=== PATIENT | male | born 1960 | race Caucasian/White ===

== ENCOUNTER 2017-10-12 15:00 | Outpatient (CLI) | payer OTHER ==
[~2017-10-12] VITALS: Ht 185.4 cm; Wt 149.7 kg
[~2017-10-12 15:00] MED LIST: ACHYD1T PO; CEPH-38 PO; CEPH500C PO; CYCL10TA9 PO; FEXO-104 PO; HYDR-3876 PO; IBUP800T26 PO; LISI10TA2 PO; MULT-963 PO; NITR-33 PO; OMEG1CAP51 PO
[2017-10-12] MEDS ORDERED: MULT-35 PO (15:09)
[2017-10-12] MEDS ORDERED: LISI-556 PO (15:09)
[2017-10-12] MEDS ORDERED: IBUP-1780 PO (15:09)
[2017-10-12] MEDS ORDERED: OMEG-109 PO (15:09)
[2017-10-12] MEDS ORDERED: CYCL10TA9 PO (15:09)
[2017-10-12] MEDS ORDERED: FEXO-46 PO (15:09)
== END 2017-10-12 15:14 ==
LOC: PREOP 15:00
PROVIDERS: ATTEND Surgery
DX: Z01.818 Encounter for other preprocedural examination (principal); Z12.11 Encounter for screening for malignant neoplasm of colon

== ENCOUNTER 2017-10-17 06:41 | Day surgery (SDC) | payer OTHER ==
[~2017-10-17] VITALS: Ht 185.4 cm; Wt 149.7 kg
[~2017-10-17 06:41] MED LIST changes: -IOHEXOL 350 MG/ML 100 ML (OMNIPAQUE 350) VIAL IV ONE; -NS 250 ML (IVPB) BAG IV ONE
--- OUTSIDE RECORDS SUMMARY | 2017-10-17 06:46 | XMS REPORT | Continuity of Care Document ---
Author Author [facility] Organization [facility] Address Unknown Phone Unavailable Allergies Active Description Code Type Severity Reaction Onset Reported/Identified Relationship to Patient Clinical Status Yes No Known Drug Allergies [id number] Drug Allergy Unknown N/A 11/22/2013 Medications There is no data. Problems Date Dx Coded Attending Type Code Diagnosis Diagnosed By 11/27/2013 MARCELLO DAVIS, SHANELL Resendiz Ot 603.9 11/09/2014 Ot 553.20 11/09/2014 Ot 571.8 11/09/2014 Ot 592.0 11/09/2014 Ot 753.10 11/12/2014 Ot 553.20 11/12/2014 Ot 571.8 11/12/2014 Ot 592.0 11/12/2014 Ot 753.10 11/20/2014 MARCELLO DAVIS, SHNAELL Resendiz Ot 401.9 11/20/2014 MARCELLO DAVIS, SHANELL Resendiz Ot 592.0 11/22/2014 Ot 553.20 11/22/2014 Ot 571.8 11/22/2014 Ot 592.0 11/22/2014 Ot 753.10 12/02/2014 MARCELLO DAVIS, SHANELL Resendiz Ot 603.9 12/02/2014 MARCELLO DAVIS, SHANELL Resendiz Ot V72.81 12/02/2014 MARCELLO DAVIS, SHANELL Resendiz Ot V72.84 12/02/2014 MARCELLO DAVIS, SHANELL Reesndiz Ot V74.8 12/02/2014 Ot 553.20 12/02/2014 Ot 571.8 12/02/2014 Ot 592.0 12/02/2014 Ot 753.10 12/02/2014 MARCELLO DAVIS, SHANELL Resendiz Ot 592.9 12/02/2014 MARCELLO DAVIS, SHANELL Resendiz Ot 592.0 12/02/2014 MARCELLO DAVIS, SHANELL Resendiz Ot V72.84 12/02/2014 MARCELLO DAVIS, SHANELL Resendiz Ot V74.8 12/03/2014 MARCELLO DAVIS, SHANELL Resendiz Ot 592.9 12/20/2014 MARCELLO DAVIS, SHANELL Resendiz Ot 592.0 12/20/2014 MARCELLO DAVIS, SHANELL Resendiz Ot V45.89 02/26/2015 VONNIE DAVIS, SUSAN Fletcher Ot 553.20 03/06/2015 VONNIE DAVIS, SUSAN M Ot 553.20 03/06/2015 VONNIE DAVIS, SUSAN M Ot 603.9 03/06/2015 VONNIE DAVIS, SUSAN Fletcher Ot V72.63 03/06/2015 VONNIE DAVIS, SUSAN Chance Ot V74.8 Procedures There is no data. Results There is no data. Encounters ACCT No. Visit Date/Time Discharge Status Pt. Type Provider Facility Loc./Unit Complaint [id number] 02/26/2015 06:00:00 02/26/2015 13:55:00 DIS Outpatient SUSAN SHANKAR MD [facility] [id number] 02/17/2015 14:23:00 02/17/2015 23:59:59 CLS Outpatient SUSAN SHANKAR MD [facility] PREOP [id number] 12/02/2014 13:04:00 12/02/2014 23:59:59 CLS Outpatient SHANELL ARMENDARIZ MD [facility] RAD [id number] 11/20/2014 06:00:00 11/20/2014 11:48:00 DIS Outpatient SHANELL ARMENDARIZ MD [facility] [id number] 11/13/2014 15:35:00 11/13/2014 23:59:59 CLS Outpatient SHANELL ARMENDARIZ MD [facility] PREOP [id number] 11/13/2014 13:12:00 11/13/2014 23:59:59 CLS Outpatient SHANELL ARMENDARIZ MD [facility] RAD [id number] 11/27/2013 06:08:00 11/27/2013 11:10:00 DIS Outpatient SHANELL ARMENDARIZ MD [facility] [id number] 11/22/2013 10:28:00 11/22/2013 23:59:59 CLS Outpatient MARCELLO DAVIS, SHANELL Resendiz [facility] RAD [id number] 10/17/2017 08:30:00 PEN Preadclark SHANKAR MD, SUSAN Fletcher [facility] RAD ABD PAIN/RECURRENT VENTRAL HERNIA [id number] 11/08/2014 12:08:00 Document Registration
[2017-10-17] MEDS ORDERED: NS IV 500 ML 500 ML ONE (08:42)
[2017-10-17] MEDS ORDERED: NS IV 500 ML 500 ML IV PRN (08:50)
[2017-10-17 09:12] VITALS: BP 105/71
--- NOTE | 2017-10-17 09:53 | Conscious Sedation/ASA ---
Conscious Sedation Pre-Proced Time Reviewed: 09:53 ASA Class: 3 Airway Mallampati Classification: ([place] appropriate class) I. II. III, IV Lungs Heart ASA score ASA 1: a normal healthy patient ASA 2: a patient with a mild systemic disease (mid diabetes, controlled hypertension, obesity ASA 3: a patient with a severe systemic disease that limits activity (angina , COPD, prior Myocardial infarction) ASA 4: a patient with an incapacitating disease that is a constant threat to life (CHF, renal failure) ASA 5: a moribund patient not expected to survive 24 hrs. (ruptured aneurysm) ASA 6: a declared brain patient whose organs are being harvested. For emergent operations, add the letter E after the classification Grade 2 Sedation Plan: Discussed options with patient/fam Note The patient is an appropriate candidate to undergo the planned procedure, sedation, and anesthesia. The patient immediately re-assessed prior to indication. SUSAN SHANKAR MD Oct 17, 2017 09:53
[2017-10-17] MEDS ORDERED: MIDAZOLAM 2 MG/2 ML (VERSED) VIAL ONE ×4 (10:13)
[2017-10-17] MEDS ORDERED: fentaNYL INJECTION 100 MCG/2 ML AMP ONE (10:13)
[2017-10-17] MEDS: MIDAZOLAM 2 MG/2 ML (VERSED) VIAL IVP PRN ×4 (10:25→10:40)
[2017-10-17] MEDS: fentaNYL INJECTION 100 MCG/2 ML AMP IVP PRN ×2 (10:26→10:30)
--- NOTE | 2017-10-17 10:55 | Endo Procedure Record ---
Endo Procedure Report Date of Procedure Last Colonoscopy: No Oct 17, 2017 Surgeon (s) SUSAN SHANKAR MD Post Procedure/Op Diagnosis Sigmoid diverticulosis 2 mm polyps 2, adjacent to each other along the distal sigmoid colon Procedure Performed Colonoscopy to cecum Hot biopsy polypectomy 2 Description of Procedure Anesthesia Type: Conscious Sedation Specimen(s) collected/removed sigmoid polyps Description of the Procedure Indication for the procedure: This gentleman came in for screening colonoscopy. Informed consent was obtained after reviewing the procedure in detail. Description of the procedure: He was placed in left lateral rectus position and his vital signs were monitored. Conscious sedation was achieved using Versed and fentanyl. Digital rectal examination was unremarkable. The colonoscope was then introduced into the rectum and advanced all the way up to the cecum Positive bowel preparation was excellent. The scope was withdrawn slowly and the mucosa examined in a systematic fashion. Findings: 1. Very few sigmoid diverticulae 2. 2 polyps, 2 mm each, adjacent to each other, along the distal sigmoid colon ; these were excised and sent as one specimen He tolerated the procedure well and was taken back to the nursing area in a stable condition. Impression: Screening colonoscopy. Sigmoid polyps excised. Recommend repeating in 5 years. SUSAN SHANKAR MD Oct 17, 2017 10:55 am
--- NOTE | 2017-10-17 10:56 | Discharge Inst-Simple/Standard ---
Discharge Inst-Standard Discharge Medications New, Converted or Re-Newed RX: Other Patient Instructions/Follow Up Plan of Care/Instructions/FU: Repeat colonoscopy in 5 years. My office staff will contact him and schedule surgery for recurrent ventral hernia Activity as Tolerated: Yes Discharge Diet: No Restrictions SUSAN SHANKAR MD Oct 17, 2017 10:56 am
[2017-10-17 11:43] VITALS: BP 90/61
[2017-10-17 11:46] VITALS: BP 90/61
== END 2017-10-17 11:49 | disposition home or self-care (01) ==
LOC: ENDO 06:41
PROVIDERS: ATTEND Surgery
DX: Z12.11 Encounter for screening for malignant neoplasm of colon (principal); K63.5 Polyp of colon; K57.30 Diverticulosis of large intestine without perforation or abscess without bleeding

== ENCOUNTER → 2017-10-17 | Outpatient (CLI) | payer OTHER ==
[~2017-10-17] MED LIST changes: +FEXO-46 PO; +IBUP-1780 PO; +IOHEXOL 350 MG/ML 100 ML (OMNIPAQUE 350) VIAL IV ONE; +LISI-556 PO; +MULT-35 PO; +NS 250 ML (IVPB) BAG IV ONE; +OMEG-109 PO
[2017-10-17 07:15] LABS: BUN/CREATININE RATIO 13; CREATININE SERUM 0.91 MG/DL (0.60-1.30); GFR ESTIMATED > 60
--- NOTE | 2017-10-17 09:34 | Diagnostic Imaging Report ---
PROCEDURE: CT abdomen and pelvis with contrast. TECHNIQUE: Multiple contiguous axial images were obtained through the abdomen and pelvis after administration of intravenous contrast. INDICATION: Recurrent ventral hernia and abdominal pain Comparison is made to the study of 11/08/2014. Mild low-density throughout the liver suggests fatty infiltration. Small focal lucencies near the dome of the right lobe of the liver could represent cysts or areas of focal fat deposition. No pancreatic, gallbladder or splenic lesion is detected. Adrenal glands are stable and unremarkable in appearance. There are multiple dominant cysts involving both kidneys which measure up to 6.2 cm in diameter. In addition, tiny nonobstructing calculi are suspected centrally in the right kidney. 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 In addition, there is an approximately 0.6 cm hyperdense focus within the region of proximal left upper pole ureter, however, there is no evidence of associated hydronephrosis or ureteric dilatation. There is no free fluid in the abdomen or pelvis. No localized inflammation is identified within the abdomen or pelvis, however, there is a persistent ventral herniation of omentum which appears be just above the level of the umbilicus with an approximately 5.5 cm defect in the anterior abdominal wall musculature. This is similar to the previous study and there is no evidence of bowel herniation. Partially opacified urinary bladder is unremarkable in appearance. 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 There is no evidence of associated hydronephrosis or hydroureter. Small nonobstructing calculi also seen centrally in the right kidney. Otherwise, there has been no significant change in midline ventral herniation of omentum just above the umbilicus. No bowel obstruction is detected. Dictated by: Dictated on workstation # [id number]
== END ==
LOC: RAD 06:37
PROVIDERS: ATTEND Surgery
DX: K43.2 Incisional hernia without obstruction or gangrene (principal); Q64.8 Other specified congenital malformations of urinary system; N28.89 Other specified disorders of kidney and ureter; N20.0 Calculus of kidney
CPT/HCPCS: 36415; 74177; 82565; 84520

== ENCOUNTER 2017-10-21 05:39 | Outpatient (CLI) | payer OTHER ==
[~2017-10-21] VITALS: Ht 185.4 cm; Wt 149.7 kg
== END 2017-10-21 15:55 ==
LOC: PREOP 05:39
PROVIDERS: ATTEND Surgery
DX: Z01.818 Encounter for other preprocedural examination (principal); K43.2 Incisional hernia without obstruction or gangrene

== ENCOUNTER 2017-10-26 05:54 | Day surgery (SDC) | payer OTHER ==
[~2017-10-26] VITALS: Ht 185.4 cm; Wt 149.7 kg
--- OUTSIDE RECORDS SUMMARY | 2017-10-26 05:57 | XMS REPORT | Continuity of Care Document ---
Author Author [facility] Organization [facility] Address Unknown Phone Unavailable Allergies Active Description Code Type Severity Reaction Onset Reported/Identified Relationship to Patient Clinical Status Yes No Known Drug Allergies [id number] Drug Allergy Unknown N/A 10/12/2017 Medications There is no data. Problems Date Dx Coded Attending Type Code Diagnosis Diagnosed By 11/27/2013 MARCELLO DAVIS, SHANELL Resendiz Ot 603.9 HYDROCELE NOS 11/09/2014 Ot 553.20 11/09/2014 Ot 571.8 11/09/2014 Ot 592.0 11/09/2014 Ot 753.10 11/12/2014 Ot 553.20 11/12/2014 Ot 571.8 11/12/2014 Ot 592.0 11/12/2014 Ot 753.10 11/20/2014 MARCELLO DAVIS, SHANELL Resendiz Ot 401.9 HYPERTENSION NOS 11/20/2014 MARCELLO DAVIS, SHANELL Resendiz Ot 592.0 CALCULUS OF KIDNEY 11/22/2014 Ot 553.20 11/22/2014 Ot 571.8 11/22/2014 Ot 592.0 11/22/2014 Ot 753.10 12/02/2014 MARCELLO DAVIS, SHANELL Resendiz Ot 603.9 12/02/2014 MARCELLO DAVIS, SHANELL Resendiz Ot V72.81 12/02/2014 MARCELLO DAVIS, SHANELL Resendiz Ot V72.84 12/02/2014 MARCELLO DAVIS, SHANELL Resendiz Ot V74.8 12/02/2014 Ot 553.20 12/02/2014 Ot [...] 02/26/2015 VONNIE DAVIS, SUSAN Fletcher Ot 553.20 VENTRAL HERNIA NOS 03/06/2015 VONNIE DAVIS, SUSAN Fletcher Ot 553.20 03/06/2015 VONNIE DAVIS, SUSAN Fletcher Ot 603.9 03/06/2015 VONNIE DAVIS, SUSAN Fletcher Ot V72.63 03/06/2015 VONNIE DAVIS, SUSAN Fletcher Ot V74.8 10/12/2017 VONNIE DAVIS, SUSAN Fletcher Ot Z01.818 ENCOUNTER FOR OTHER PREPROCEDURAL EXAMIN 10/12/2017 VONNIE DAVIS, SUSAN Fletcher Ot Z12.11 ENCOUNTER FOR SCREENING FOR MALIGNANT NE 10/14/2017 MARCELLO DAVIS, SHANELL Resendiz Ot 603.9 HYDROCELE NOS 10/14/2017 MARCELLO DAVIS, SHANELL Resendiz Ot V72.81 [id number] CARDIOVASCULAR 10/14/2017 SHANELL ARMENDARIZ MD Ot V72.84 EXAM PRE-OPERATIVE NOS 10/14/2017 SHANELL ARMENDARIZ MD Ot V74.8 SCREEN-BACTERIAL DIS NEC 10/14/2017 Ot 553.20 VENTRAL HERNIA NOS 10/14/2017 Ot 571.8 CHRONIC LIVER DIS NEC 10/14/2017 Ot 592.0 CALCULUS OF KIDNEY 10/14/2017 Ot 753.10 CYSTIC KIDNEY DISEASE, UNSPECIFIED 10/14/2017 SHANELL ARMENDARIZ MD Ot 592.9 URINARY CALCULUS NOS 10/14/2017 SHANELL ARMENDARIZ MD Ot 592.0 CALCULUS OF KIDNEY 10/14/2017 SHANELL ARMENDARIZ MD Ot V72.84 EXAM PRE-OPERATIVE NOS 10/14/2017 SHANELL ARMENDARIZ MD Ot V74.8 SCREEN-BACTERIAL DIS NEC 10/14/2017 SHANELL ARMENDARIZ MD Ot 592.0 CALCULUS OF KIDNEY 10/14/2017 SHANELL ARMENDARIZ MD Ot V45.89 POSTSURGICAL STATES NEC 10/14/2017 VONNIE DAVIS, SUSAN Fletcher Ot 553.20 VENTRAL HERNIA NOS 10/14/2017 VONNIE DAVIS, SUSAN Fletcher Ot 603.9 HYDROCELE NOS 10/14/2017 SUSAN SHANKAR MD Ot V72.63 PRE-PROCEDURAL LABORATORY EXAMINATION 10/14/2017 SUSAN SHANKAR MD Ot V74.8 SCREEN-BACTERIAL DIS NEC 10/17/2017 SUSAN SHANKAR MD Ot K57.30 DVRTCLOS OF LG INT W/O PERFORATION OR AB 10/17/2017 SUSAN SHANKAR MD Ot K63.5 POLYP OF COLON 10/17/2017 SUSAN SHANKAR MD Ot Z12.11 ENCOUNTER FOR SCREENING FOR MALIGNANT NE 10/17/2017 SUSAN SHANKAR MD Ot K43.2 INCISIONAL HERNIA WITHOUT OBSTRUCTION OR 10/17/2017 SUSAN SHANKAR MD Ot N20.0 CALCULUS OF KIDNEY 10/17/2017 SUSAN SHANKAR MD Ot N28.89 OTHER SPECIFIED DISORDERS OF KIDNEY AND 10/17/2017 SUSAN SHANKAR MD Ot 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 10/19/2017 SUSAN SHANKAR MD Ot K57.30 DVRTCLOS OF LG INT W/O PERFORATION OR AB 10/19/2017 SUSAN SHANKAR MD Ot K63.5 POLYP OF COLON 10/19/2017 SUSAN SHANKAR MD Ot Z12.11 ENCOUNTER FOR SCREENING FOR MALIGNANT NE 10/20/2017 SUSAN SHANKAR MD Ot K57.30 DVRTCLOS OF LG INT W/O PERFORATION OR AB 10/20/2017 SUSAN SHANKAR MD Ot K63.5 POLYP OF COLON 10/20/2017 SUSAN SHANKAR MD Ot Z12.11 ENCOUNTER FOR SCREENING FOR MALIGNANT NE 10/25/2017 SUSAN SHANKAR MD Ot K43.2 INCISIONAL HERNIA WITHOUT OBSTRUCTION OR 10/25/2017 SUSAN SHANKAR MD Ot Z01.818 ENCOUNTER FOR OTHER PREPROCEDURAL EXAMIN Procedures There is no data. Results Test Result Range [id number] - 10/17/17 06:55 Serum or plasma urea nitrogen measurement (mass/volume) 12 mg/dL 7-18 Serum or plasma creatinine measurement (mass/volume) 0.91 mg/dL 0.60-1.30 Serum or plasma urea nitrogen/creatinine mass ratio 13 NRG Serum or plasma creatinine measurement with calculation of estimated glomerular filtration rate > NRG Encounters ACCT No. Visit Date/Time Discharge Status Pt. Type Provider Facility Loc./Unit Complaint [id number] 10/21/2017 05:39:00 10/21/2017 15:55:00 DIS Outpatient SUSAN SHANKAR MD [facility] PREOP RECURRENT VENTRAL HERNIA [id number] 10/17/2017 06:37:00 10/17/2017 23:59:59 CLS Outpatient SUSAN SHANKAR MD [facility] RAD ABD PAIN/RECURRENT VENTRAL HERNIA [id number] 10/17/2017 06:41:00 10/17/2017 11:49:00 DIS Outpatient SUSAN SHANKAR MD [facility] ENDO SCREENING [id number] 10/12/2017 15:00:00 10/12/2017 15:14:00 DIS Outpatient SUSAN SHANKAR MD [facility] PREOP COLONOSCOPY [id number] 02/26/2015 06:00:00 02/26/2015 13:55:00 DIS Outpatient SUSAN SHANKAR MD [facility] SDC VENTRAL HERNIA [id number] 02/17/2015 14:23:00 02/17/2015 23:59:59 CLS Outpatient SUSAN SHANKAR MD [facility] PREOP VENTRAL HERNIA [id number] 12/02/2014 13:04:00 12/02/2014 23:59:59 CLS Outpatient SHANELL ARMENDARIZ MD [facility] RAD RENAL STONES [id number] 11/20/2014 06:00:00 11/20/2014 11:48:00 DIS Outpatient SHANELL ARMENDARIZ MD [facility] SDC BILATERAL RENAL STONES [id number] 11/13/2014 15:35:00 11/13/2014 23:59:59 CLS Outpatient SHANELL ARMENDARIZ MD [facility] PREOP BILATERAL RENAL STONES [id number] 11/13/2014 13:12:00 11/13/2014 23:59:59 CLS Outpatient SHANELL ARMENDARIZ MD [facility] RAD STONES [id number] 11/27/2013 06:08:00 11/27/2013 11:10:00 DIS Outpatient SHANELL ARMENDARIZ MD [facility] LEFT CYSTOCELE [id number] 11/22/2013 10:28:00 11/22/2013 23:59:59 CLS Outpatient SHANELL ARMENDARIZ MD [facility] RAD LT HYDROCELE [id number] 10/26/2017 08:00:00 PEN Preadmit VONNIE DAVIS, SUSAN Fletcher [facility] RECURRENT VENTRAL HERNIA [id number] 11/08/2014 12:08:00 Document Registration
[2017-10-26 06:10] VITALS: BP 113/78
[2017-10-26] MEDS ORDERED: SEVOFLURANE (ULTANE) 15 ML INHAL SOLN ONE (06:41)
[2017-10-26] MEDS ORDERED: proPOfol 200 MG/20 ML (DIPRIVAN) VIAL IV ONE (06:41)
[2017-10-26] MEDS ORDERED: MIDAZOLAM 2 MG/2 ML (VERSED) VIAL ONE (06:41)
[2017-10-26] MEDS ORDERED: ROCURONIUM 10 MG/ML 5 ML SYRINGE IV ONE (06:41)
[2017-10-26] MEDS ORDERED: ONDANSETRON 4 MG/2 ML (SDV) Z0FRAN ONE (06:41)
[2017-10-26] MEDS ORDERED: DEXAMETHASONE 10 MG/ML (DECADRON) 1 ML VIAL ONE (06:41)
[2017-10-26] MEDS: LACTATED RINGERS 1,000 ML IV PRN ×2 (06:45→08:08)
[2017-10-26] MEDS ORDERED: PREGABALIN 75 MG (LYRICA) CAP ONE (07:22)
[2017-10-26] MEDS ORDERED: CELECOXIB 100 MG (CeleBREX) CAP PO ONE ×2 (07:22→07:30)
[2017-10-26] MEDS ORDERED: oxyCODONE ER 10 MG (OxyCONTIN CR) TAB PO ONE ×2 (07:22→07:30)
[2017-10-26] MEDS ORDERED: BUP/EPI 0.5% 1:200,000 (SENSORCAINE) 30 ML VIAL ONE (07:22)
[2017-10-26] MEDS ORDERED: PREGABALIN 75 MG (LYRICA) CAP PO ONE (07:30)
[2017-10-26] MEDS ORDERED: ceFAZolin 2 GM IV Premixed 50 ML IV ONE (07:30)
[2017-10-26] MEDS ORDERED: ACETAMINOPHEN 500 MG TAB (TYLENOL) PO ONE (07:30)
--- NOTE | 2017-10-26 07:36 | Progress Note-Pre Operative ---
Pre-Operative Progress Note H&P Reviewed The H&P was reviewed, patient examined and no changes noted. Date Seen by Provider: Oct 17, 2017 Time Seen by Provider: 11:20 Date H&P Reviewed: Oct 26, 2017 Time H&P Reviewed: 07:36 Pre-Operative Diagnosis: Recurrent ventral hernia SUSAN SHANKAR MD Oct 26, 2017 7:36 am
[2017-10-26] MEDS: KETOROLAC 30 MG/ML VIAL IV SCH ×3 (07:45→20:47)
[2017-10-26] MEDS ORDERED: morphine INJ 10 MG/ML 1ML (SYR OR VIAL) IV PRN (07:45)
[2017-10-26] MEDS ORDERED: LIDOCAINE PF 0.5% 50 ML (XYLOCAINE) VIAL ONE (08:53)
[2017-10-26] MEDS ORDERED: GLYCOPYRROLATE 0.2 MG/ML (ROBINUL) 2 ML VIAL ONE (09:51)
[2017-10-26] MEDS ORDERED: NEOSTIGMINE 1 MG/ML 5 ML SYRINGE ONE (09:51)
--- NOTE | 2017-10-26 10:01 | Operative Report ---
Operative Report Date of Procedure/Surgery Oct 26, 2017 Surgeon (s) SUSAN SHANKAR MD Insurance Agency Owner (s): n/a Post-Operative Diagnosis Same Procedure Performed Robotic assisted repair with mesh Description of Procedure Anesthesia Type: General Estimated blood loss (mL): Minimal Specimen(s) collected/removed None Description of the Procedure Indication for the procedure: This gentleman presented with a recurrent ventral hernia, superior lateral to the umbilicus. He had undergone minimally invasive repair with primary closure of the defect and reinforcement of the mesh back to have years ago. CT scan showed omentum being incarcerated within the defect. He was offered further repair using robotic assistance and reinforcement with a new mesh. Informed consent was obtained after reviewing the operative details and complications of hematoma, infection of the mesh and the potential for recurrence. Description of procedure: He was placed supine on the operative table and general anesthesia induced using an endotracheal tube. 2 g of Ancef were administered intravenously as prophylaxis against wound infection. Sequential compression devices were placed around his legs, to minimize the risk of venous thrombosis. Abdomen was prepared and draped in the usual sterile manner. Pneumoperitoneum was established using a Veress needle introduced over the right subcostal margin , along the midclavicular line. Intra-abdominal pressure was maintained at 15 mmHg, using carbon dioxide insufflation. A 12 mm trocar was placed and anatomy visualized using a high definition, 3-dimensional laparoscope associated with da [employer] system. The recurrent hernia was found at the right superior and lateral end of the previous mesh, which was in satisfactory position. Under direct view, I placed another 12 mm trocar over the right-side of the abdomen, along the mid axillary line, followed by an 8 mm trocar over the right lower quadrant. The robotic system was docked in place. Omentum was taken down using the hook cautery, revealing a defect measuring about 5 cm vertically by 4 cm transversely. It was closed primarily using 0, permanent V- LOC suture with robotic assistance. Intra-abdominal pressure was reduced to 11 mmHg, to reduce the tension on the suture line. I used 2 separate lengths of the suture coming from each direction. The repair was then reinforced using a polypropylene mesh MEASURING 15.2 cm in width by 20 cm in length. It was held up using the self-retaining balloon system to facilitate closure. The edges of the mesh were secured to the abdominal muscles using 2-0 V-loc sutures with robotic assistance. Hemostasis was satisfactory and the mesh appeared to be placed with adequate overlap. Incisions were closed using 4-0 Vicryl, in a subcuticular fashion. 0.5 percent Marcaine with epinephrine was infiltrated along the incisions, both preemptively and at the conclusion of the operation. She tolerated the procedure well, was extubated in the operating room and taken to the recovery room in a stable condition. Findings of the Procedure See op report Allergies and Home Medications Allergies Coded Allergies: No Known Drug Allergies (Unverified , 10/12/17) Home Medications Cyclobenzaprine HCl 10 Mg Tablet, PO TID PRN for MUSCLE CRAMPS, (Reported) Fexofenadine HCl 180 Mg Tablet, 180 MG PO DAILY, (Reported) Ibuprofen 800 Mg Tablet, 800 MG PO Q8H PRN for PAIN, (Reported) Lisinopril 5 Mg Tablet, 5 MG PO DAILY, (Reported) Multivitamin 1 Each Tablet, 1 EACH PO DAILY, (Reported) Huguenot-3 Fatty Acids/Fish Oil 1 Each Capsule, 2 EACH PO DAILY, (Reported) Patient Home Medication List Home Medication List Reviewed: Yes SUSAN SHANKAR MD Oct 26, 2017 10:00 am
[2017-10-26] MEDS ORDERED: ACHD5005 PO (10:02)
[2017-10-26] MEDS ORDERED: fentaNYL INJECTION 100 MCG/2 ML AMP ONE (10:03)
--- NOTE | 2017-10-26 10:04 | Discharge Inst-Simple/Standard ---
Discharge Inst-Standard Discharge Medications New, Converted or Re-Newed RX: RX on Chart Patient Instructions/Follow Up Plan of Care/Instructions/FU: Band-Aids off in a.m. Incentive spirometry. Abdominal binder to stay on. Follow-up in 4 weeks Activity as Tolerated: No Goal: No lifting over 10 pounds. Discharge Diet: No Restrictions SUSAN SHANKAR MD Oct 26, 2017 10:04 am
[2017-10-26] MEDS ORDERED: morphine INJ 10 MG/ML 1ML (SYR OR VIAL) IVP PRN (10:30)
[2017-10-26] MEDS ORDERED: ONDANSETRON 4 MG/2 ML (SDV) Z0FRAN IVP PRN (10:30)
[2017-10-26 11:40] VITALS: BP 132/65
[2017-10-26 16:45] VITALS: BP 118/70
[2017-10-26 20:13] VITALS: BP 137/76
[2017-10-27 00:06] VITALS: BP 128/74
[2017-10-27] MEDS: KETOROLAC 30 MG/ML VIAL IV SCH ×2 (02:16→08:13)
[2017-10-27 04:00] VITALS: BP 95/58
[2017-10-27] MEDS: LORATADINE (CLARITIN) 10 MG TAB PO SCH ×2 (08:12→08:14)
[2017-10-27] MEDS: lisINopril 5 MG (PRINIVIL) TABLET PO SCH ×2 (08:12→08:14)
[2017-10-27 08:47] VITALS: BP 123/80
--- NOTE | 2017-10-27 09:39 | Progress Note-Standard ---
Standard Progress Note Progress Notes/Assess & Plan Date Seen by Provider: Oct 27, 2017 Time Seen by Provider: 09:38 Progress/Assessment & Plan patient pulled out the access needle from the [employer] causing concerns. Replaced and radiologic study performed, reported be is to be in satisfactory position. Bowel prep reported to be complete. Colonoscopy this afternoon. Potassium levels pending Final Diagnosis chronic diarrhea. Hypokalemia. SUSAN SHANKAR MD Oct 27, 2017 9:39 am
--- NOTE | 2017-10-27 09:41 | Progress Note-Standard ---
Standard Progress Note Progress Notes/Assess & Plan Date Seen by Provider: Oct 27, 2017 Time Seen by Provider: 08:55 Progress/Assessment & Plan doing well. Ambulating independently. Pain control adequate. Could be discharged home. Final Diagnosis recurrent ventral hernia SUSAN SHANKAR MD Oct 27, 2017 9:41 am
[2017-10-27 12:00] VITALS: BP 128/78
[2017-10-27 12:10] VITALS: BP 123/80
== END 2017-10-27 12:10 | disposition home or self-care (01) ==
LOC: SDC 05:54 → 4TH 11:20 → SDC 10-27 12:10
PROVIDERS: ATTEND Surgery
DX: K43.2 Incisional hernia without obstruction or gangrene (principal); Z11.2 Encounter for screening for other bacterial diseases; I10 Essential (primary) hypertension; F17.220 Nicotine dependence, chewing tobacco, uncomplicated; E66.01 Morbid (severe) obesity due to excess calories; Z68.41 Body mass index [BMI] 40.0-44.9, adult
CPT/HCPCS: 87081; 94664